=== PATIENT | female | born 1960 | race Caucasian/White ===

== ENCOUNTER 2018-10-04 16:56 | Emergency (ER) | payer MEDICAID, OTHER ==
[2018-10-04] MEDS ORDERED: Acetaminophen 500 MG TAB ONE (18:42)
[2018-10-04 18:56] LABS: #Eosinphils 0.1 thou/uL (0.0-0.7); #Lymphocytes 1.4 thou/uL (1.20-3.40); #Monocytes 0.4 thou/uL (0.11-0.59); #Neutrophils 6.2 thou/uL (1.40-6.50); %Basophils 0.2 % (0.0-1.0); %Eosinophils 1.5 % (0.0-10.0); %Lymphocytes 16.9 % (21.0-51.0); %Monocytes 4.4 % (0.0-10.0); %Neutrophils 77.1 % (42.0-75.0); Hemoglobin 12.7 g/dL (12.0-16.0); Mean Corpuscular HGB CONC 32.4 g/dL (32.0-36.0); Mean Corpuscular Hemoglobin 31.4 pg (27.0-31.0); Mean Platelet Volume 6.9 fL (7.4-10.4); Platelet Count 261 thou/uL (130-400); RBC Distribution Width 11.7 % (11.5-14.5); Red Blood Cell (RBC) Count 4.04 mill/uL (4.20-5.40)
[2018-10-04 19:15] LABS: ALT (SGPT) Less than 7 U/L (8-55); AST (SGOT) 16 U/L (5-34); Albumin 3.9 g/dL (3.5-5.0); Alkaline Phosphatase 98 U/L (40-150); Anion Gap 14 mmol/L (10-20); BUN (Urea Nitrogen) 21 mg/dL (9.8-20.1); Bilirubin, Total 0.2 mg/dL (0.2-1.2); Calc. Creatinine Clearance 0 mL/min (70-130); Calcium 8.9 mg/dL (7.8-10.44); Carbon Dioxide 24 mmol/L (22-29); Chloride 105 mmol/L (98-107); Estimated GFR-MDRD 59; Globulin 3.7 g/dL (2.4-3.5); Glucose 95 mg/dL (70-105); Potassium 4.1 mmol/L (3.5-5.1); Protein, Total 7.6 g/dL (6.0-8.3); Sodium 139 mmol/L (136-145)
--- NOTE | 2018-10-04 20:00 | ULT ---
BILATERAL LOWER EXTREMITY VENOUS DUPLEX EXAM: 10/04/18 INDICATIONS: Lower extremity pain and edema. The exam is severely limited due to patient's body habitus and pain during the exam. Portions of the femoral veins bilaterally were unable to be visualized. The venous structures are evaluated with color doppler with spectral analysis and compression. The visualized deep veins of both lower extremities show blood flow and compression. The posterior ti bial veins were suboptimally evaluated. Additional femoral veins were also suboptimally evaluated as noted above. IMPRESSION: No evidence of DVT identified in visualized veins of the lower extremities. The exam is suboptimal du e to body habitus. POS: [facility]
== END 2018-10-04 23:10 ==
LOC: ERS 16:56
DX: L03.115 Cellulitis of right lower limb (principal); L03.116 Cellulitis of left lower limb; F32.9 Major depressive disorder, single episode, unspecified; E03.9 Hypothyroidism, unspecified; E66.9 Obesity, unspecified; G20 Parkinson's disease; Z79.899 Other long term (current) drug therapy; Z79.1 Long term (current) use of non-steroidal anti-inflammatories (NSAID)
CPT/HCPCS: 36415; 80053; 85025; 93970

== ENCOUNTER 2019-05-28 06:56 | Inpatient (IN) | payer OTHER ==
[2019-05-28] MEDS ORDERED: Adacel (T-DAP) 0.5 ML SYRINGE ONE (07:41)
--- NOTE | 2019-05-28 07:52 | RAD ---
Right ankle 2 views HISTORY: Fall. Ankle injury. FINDINGS: No comparison. Internal fixation of the medial and lateral malleoli. Comminuted oblique fracture with one half shaft width lateral displacement of the major distal fragme nt involves the distal fibula above the level of the ankle mortise, with lucency around the proximal screws and mild bending of the side plate. Oblique fracture also involves the base of the medial malleolus with 1.0 cm lateral displacement of t he distal fragment and bending of the long wires that had previously traversed the medial malleolar fracture. There is approximately 1.3 cm lateral shift of the talus. Osseous structures are deminerali zed. IMPRESSION: Lateral displacement/dislocation of a bimalleolar right ankle fracture, involving the int ernal fixation hardware as detailed above.
[2019-05-28] MEDS ORDERED: CEFAZOLIN 1 GM VIAL ONE (08:37)
[2019-05-28 09:08] LABS: #Eosinphils 0.2 thou/uL (0.0-0.7); #Lymphocytes 1.5 thou/uL (1.20-3.40); #Monocytes 0.5 thou/uL (0.11-0.59); #Neutrophils 7.2 thou/uL (1.40-6.50); %Basophils 0.1 % (0.0-1.0); %Eosinophils 1.8 % (0.0-10.0); %Lymphocytes 15.9 % (21.0-51.0); %Neutrophils 77.1 % (42.0-75.0); Hemoglobin 14.4 g/dL (12.0-16.0); Mean Corpuscular HGB CONC 33.6 g/dL (32.0-36.0); Mean Corpuscular Hemoglobin 31.8 pg (27.0-31.0); Mean Corpuscular Volume 94.7 fL (78.0-98.0); Platelet Count 260 thou/uL (130-400); RBC Distribution Width 12.2 % (11.5-14.5); Red Blood Cell (RBC) Count 4.52 mill/uL (4.20-5.40); White Blood Cell (WBC) Count 9.3 thou/uL (4.8-10.8)
[2019-05-28 09:10] LABS: PTT 23.7 SEC (22.9-36.1); Prothrombin Time 12.9 SEC (12.0-14.7)
[2019-05-28 09:24] LABS: ALT (SGPT) Less than 7 U/L (8-55); AST (SGOT) 19 U/L (5-34); Alkaline Phosphatase 92 U/L (40-150); Anion Gap 16 mmol/L (10-20); BUN (Urea Nitrogen) 18 mg/dL (9.8-20.1); Bilirubin, Total 0.3 mg/dL (0.2-1.2); Calc. Creatinine Clearance 0 mL/min (70-130); Calcium 9.1 mg/dL (7.8-10.44); Carbon Dioxide 25 mmol/L (22-29); Chloride 105 mmol/L (98-107); Estimated GFR-MDRD 59; Globulin 3.6 g/dL (2.4-3.5); Glucose 103 mg/dL (70-105); Protein, Total 7.6 g/dL (6.0-8.3); Sodium 142 mmol/L (136-145)
--- NOTE | 2019-05-28 10:38 | RAD ---
CHEST 1 VIEW: HISTORY: Preoperative evaluation for basal stimulator pack. COMPARISON: 01/15/2015. FINDINGS: Implantable devices overlie the left axillary region and mid chest. Heart size is normal. The lungs are clear. IMPRESSION: No significant acute intrathoracic disease. Several implantable devices noted overlying the chest. POS: [facility]
[2019-05-28] MEDS ORDERED: Fentanyl 100 MCG/2 ML VIAL ONE ×3 (11:23→14:56)
[2019-05-28] MEDS ORDERED: Bupivacaine PF 0.5% 30 ML VIAL ONE (11:53)
[2019-05-28] MEDS ORDERED: Ondansetron PF 4 MG/2 ML Vial IV PRN (14:08)
[2019-05-28] MEDS ORDERED: traMADol HCl 50 MG TAB PO PRN (14:08)
[2019-05-28] MEDS ORDERED: Fentanyl 100 MCG/2 ML VIAL SLOW IVP PRN (14:08)
[2019-05-28] MEDS ORDERED: Acetaminophen/Codeine 30-300mg Tablet PO PRN (14:08)
[2019-05-28] MEDS ORDERED: Communication Order-Pharmacy FS SCH (14:15)
--- NOTE | 2019-05-28 14:23 | RAD ---
Right ankle 2 views intraoperative fluoroscopy HISTORY: Ankle fracture. FINDINGS: Intraoperative fluoroscopy was provided for internal fixation as performed by Dr. Vila . Spot fluoroscopic images show lateral compression plate and multiple screws transfixing the medial and lateral malleoli. Alignment is anatomic. Fluoroscopy time 13.7 seconds.
[2019-05-28] MEDS ORDERED: Albuterol Sulfate 1.25 MG/3 ML NEB ONE (14:46)
[2019-05-28] MEDS ORDERED: Ondansetron HCl/PF 4 MG/2 ML Vial IVP PRN (14:55)
[2019-05-28] MEDS ORDERED: Promethazine HCl 25 MG/ML VIAL IM PRN (14:55)
[2019-05-28] MEDS ORDERED: Promethazine HCl 25 MG/ML VIAL SLOW IVP PRN (14:55)
[2019-05-28] MEDS ORDERED: Ketorolac Tromethamine 30 MG/ML VIAL ONE (15:22)
[2019-05-28] MEDS ORDERED: PROPOFOL 200 MG/20 ML VIAL ONE (15:22)
[2019-05-28] MEDS ORDERED: Rocuronium Bromide 10 MG/ML (10ML VIAL) ONE (15:22)
[2019-05-28] MEDS ORDERED: Lidocaine 1% PF 5 ML VIAL ONE (15:22)
[2019-05-28] MEDS ORDERED: Ondansetron PF 4 MG/2 ML Vial ONE (15:22)
[2019-05-28] MEDS ORDERED: PHENYLEPHRINE-NS 100 MCG/ML 10 ML SYRINGE ONE (15:22)
--- NOTE | 2019-05-28 15:56 | OP ---
DATE OF PROCEDURE: 05/28/2019 OPERATIONS: 1. Open reduction and internal fixation of right bimalleolar ankle fracture. 2. Irrigation and debridement of right open fracture. 3. Hardware removal from right medial ankle. PREOPERATIVE DIAGNOSIS: Right open ankle fracture, bimalleolar, with old hardware in place. POSTOPERATIVE DIAGNOSIS: Right open ankle fracture, bimalleolar, with old hardware in place. COMPLICATIONS: None. ESTIMATED BLOOD LOSS: 100 mL. SCAFFOLD WORKER: Benji Mina. IMPLANTS: Two 4.0 cancellous screws from [employer] were utilized. INDICATIONS: Ms. Mckeon is a 58-year-old female who has fallen. She is a care home patient. She was having assistance; however, she lost balance and fell to the ground. She fractured her right ankle. She had a long transverse 10-cm laceration over the medial ankle down to the bony level. She was indicated for irrigation and debridement as well as open reduction and internal fixation of the ankle fracture to restore anatomic alignment and promote healing. Risks have been reviewed in detail. She has elected to proceed with the operation. DESCRIPTION OF PROCEDURE: Ms. Mckeon was identified in the preoperative holding area. Her correct extremity was marked. She was carried to the operating room. She was positioned supine. General anesthesia was induced. A multidisciplinary time-out was performed. The right lower extremity was prepped and draped in sterile fashion. At this point, we began the procedure with extension of the patient's traumatic wound. She had a 10-cm transverse wound along the medial ankle. We extended this 2 cm proximally and distally. We thoroughly irrigated with copious lavage using a pulse lavage. We trimmed the skin edges and removed damaged subcutaneous tissue, fascia, as well as bony fragments. We irrigated the ankle joint itself. After thorough irrigation, we used a reduction clamp to restore the anatomic alignment of the medial malleolus. Once this was accomplished, we passed two 4.0 screws, the 1st was partially threaded and the 2nd was fully threaded, across the fracture site. These were seated appropriately using x-ray guidance. We evaluated with intraoperative x-ray the ankle mortise as well as the lateral side. At this point, the lateral malleolus was well reduced after this manipulation technique. We decided not to make a 2nd excision given that the patient has very poor skin and soft tissues. We thoroughly irrigated once more. We then removed 2 wires from the medial side of the ankle, which were prominent. These were from a previous fracture surgery many years ago. The wires were removed using a pliers. Finally closed using an 0 Vicryl suture, 2-0 Vicryl suture, and nylon for the skin. A sterile dressing was applied as well as a well-padded splint. The patient was taken to the recovery room in good condition without complication at this point. Job ID: [id number]
[2019-05-28 16:11] VITALS: BMI 49.2
[2019-05-28] MEDS: CEFAZOLIN 2 GM in Premix Bag 1 BAG IVPB SCH ×2 (16:59→23:27)
[2019-05-28] MEDS ORDERED: Loratadine 10 MG TAB PO PRN (17:00)
[2019-05-28] MEDS ORDERED: Loperamide HCl 2 MG CAP PO PRN (17:00)
[2019-05-28] MEDS ORDERED: TETANUS AND DIPHTHERIA TOX/PF 0.5 ML DISP.SYRIN IM SCH (17:00)
[2019-05-28] MEDS: Pramipexole Di-HCl 0.25 MG TAB PO SCH ×2 (17:12→19:57)
[2019-05-28] MEDS: carBAMazepine 200 MG TAB PO SCH ×3 (17:12→23:28)
[2019-05-28] MEDS ORDERED: Simethicone Chewable 80 MG TAB PO PRN (19:00)
[2019-05-28] MEDS: Aspirin 81 mg Enteric Coated Tablet PO SCH (19:57)
[2019-05-28] MEDS: Furosemide 40 MG TAB PO SCH (19:57)
[2019-05-28] MEDS: Potassium Chloride 20 MEQ TAB PO SCH (19:57)
[2019-05-28] MEDS: Carbidopa/Levodopa 25-100 mg Tablet PO SCH ×2 (19:57→23:28)
[2019-05-28] MEDS: Entacapone 200 mg Tablet PO SCH ×2 (19:57→23:28)
[2019-05-29] MEDS: CEFAZOLIN 2 GM in Premix Bag 1 BAG IVPB SCH (05:55)
[2019-05-29] MEDS ORDERED: Levothyroxine Sodium 88 MCG TAB PO SCH (06:00)
[2019-05-29 06:05] LABS: #Eosinphils 0.1 thou/uL (0.0-0.7); #Lymphocytes 1.5 thou/uL (1.20-3.40); #Monocytes 0.6 thou/uL (0.11-0.59); #Neutrophils 5.5 thou/uL (1.40-6.50); %Basophils 0.2 % (0.0-1.0); %Eosinophils 1.8 % (0.0-10.0); %Lymphocytes 19.9 % (21.0-51.0); %Monocytes 7.4 % (0.0-10.0); %Neutrophils 70.7 % (42.0-75.0); Hemoglobin 10.7 g/dL (12.0-16.0); Mean Corpuscular HGB CONC 32.4 g/dL (32.0-36.0); Mean Corpuscular Volume 95.4 fL (78.0-98.0); Mean Platelet Volume 6.4 fL (7.4-10.4); Platelet Count 199 thou/uL (130-400); RBC Distribution Width 11.6 % (11.5-14.5); Red Blood Cell (RBC) Count 3.46 mill/uL (4.20-5.40); White Blood Cell (WBC) Count 7.8 thou/uL (4.8-10.8)
[2019-05-29 06:23] LABS: ALT (SGPT) Less than 7 U/L (8-55); AST (SGOT) 15 U/L (5-34); Albumin 3.1 g/dL (3.5-5.0); Alkaline Phosphatase 63 U/L (40-150); Anion Gap 9 mmol/L (10-20); BUN (Urea Nitrogen) 17 mg/dL (9.8-20.1); Bilirubin, Total 0.4 mg/dL (0.2-1.2); Calc. Creatinine Clearance 132 mL/min (70-130); Carbon Dioxide 28 mmol/L (22-29); Chloride 103 mmol/L (98-107); Estimated GFR-MDRD 59; Globulin 2.9 g/dL (2.4-3.5); Glucose 112 mg/dL (70-105); Potassium 3.8 mmol/L (3.5-5.1); Sodium 136 mmol/L (136-145)
[2019-05-29] MEDS: Aspirin 81 mg Enteric Coated Tablet PO SCH (08:41)
[2019-05-29] MEDS: Entacapone 200 mg Tablet PO SCH ×2 (08:41→11:55)
[2019-05-29] MEDS: carBAMazepine 200 MG TAB PO SCH ×2 (08:41→11:56)
[2019-05-29] MEDS: Carbidopa/Levodopa 25-100 mg Tablet PO SCH ×2 (08:41→11:55)
[2019-05-29] MEDS: Furosemide 40 MG TAB PO SCH (08:42)
[2019-05-29] MEDS: Potassium Chloride 20 MEQ TAB PO SCH (08:42)
[2019-05-29] MEDS: Pramipexole Di-HCl 0.25 MG TAB PO SCH (08:43)
[2019-05-29] MEDS ORDERED: Cyanocobalamin (Vitamin B-12) 1,000 MCG TAB PO SCH (09:00)
[2019-05-29] MEDS ORDERED: Folic Acid 1 MG TAB PO SCH ×2 (09:00→11:00)
[2019-05-29] MEDS ORDERED: Fluticasone Propionate Nasal Spray 16 gm Bottle NASAL SCH (09:00)
[2019-05-29] MEDS ORDERED: pyridOXINE 50 MG (B6) TAB PO SCH (09:00)
[2019-05-29 11:09] VITALS: BP 109/64; TEMP 98.5
--- NOTE | 2019-05-29 15:25 | DIS ---
DATE OF ADMISSION: 05/28/2019 DATE OF DISCHARGE: 05/29/2019 HOSPITAL COURSE: Ms. Mckeon is a 58-year-old female, who fell in her nursing facility. She fractured her right ankle. She had an open transverse wound over the medial ankle. She was taken to the operating room for irrigation and debridement of the open fracture as well as fixation. We performed medial ankle fixation as well as hardware removal from a previous ankle fracture. She was given intravenous Ancef and vancomycin. She was stable overnight with no complications. Pain was well controlled. She was tolerating an oral diet. The patient should be nonweightbearing on her right leg for 6 weeks. DISCHARGE INSTRUCTIONS: The patient will go back to her nursing facility. She can elevate the foot. She can leave her splint on to protect her fracture. I would like to see her in 1 week for wound evaluation and re-splinting of the fracture. Again, she should be nonweightbearing. The patient will be discharged with Tylenol with Codeine for pain control and aspirin for DVT prophylaxis. Job ID: [id number]
[2019-05-30] MEDS ORDERED: Folic Acid 1 MG TAB PO SCH (09:00)
== END 2019-05-29 15:20 | DRG 493 ==
LOC: ERS 06:56 → SURG A 14:08
PROVIDERS: ADMIT Orthopaedic Surgery; ATTEND Orthopaedic Surgery
PROC: 0QSJ04Z Reposition Right Fibula with Internal Fixation Device, Open Approach (ICD-10-PCS; principal; 2019-05-28)
PROC: 0SPG04Z Removal of Internal Fixation Device from Left Ankle Joint, Open Approach (ICD-10-PCS; 2019-05-28)
DX: S82.841B Displaced bimalleolar fracture of right lower leg, initial encounter for open fracture type I or II (principal); Z68.42 Body mass index [BMI] 45.0-49.9, adult; E03.9 Hypothyroidism, unspecified; G20 Parkinson's disease; E66.9 Obesity, unspecified; F32.9 Major depressive disorder, single episode, unspecified; F03.90 Unspecified dementia, unspecified severity, without behavioral disturbance, psychotic disturbance, mood disturbance, and anxiety; W18.30XA Fall on same level, unspecified, initial encounter
CPT/HCPCS: 36415; 51702; 71045; 76000; 80053; 85025; 85610; 85730; 86850; 86900; 86901; 90471; 90715; 93005; 96365; C1713; J0690; J1885; J2001; J2405; J2704; J3010; J3370; S0020

== ENCOUNTER 2019-09-06 08:22 | Day surgery (SDC) | payer OTHER ==
--- NOTE | 2019-09-06 09:35 | RAD ---
RIGHT ANKLE 2 VIEWS: Date: 09/06/19 HISTORY: Trauma. Comparison made to postoperative films of 05/28/19. FINDINGS/IMPRESSION: Patient has had prior internal fixation of distal tibia and fibula with plate and screws transfixing the distal fibula and screws transfixing medial malleolus and distal tibia. Today's exam shows evidence of an acute fracture involving the distal tibia with slight displacement of the distal tibia as seen on the lateral view. There is a fracture line seen through the lateral malleolus, which may represent the previous fractur e which was noted on 05/28/19. POS: [facility]
--- NOTE | 2019-09-06 09:53 | RAD ---
RIGHT TIBIA AND FIBULA 2 VIEWS: Date: 09/06/19 HISTORY: Injury. Comparison made to ankle films of 05/28/19. FINDINGS/IMPRESSION: Screws transfix the distal tibia and medial malleolus. Plate and screws transfix the distal fibula. There is evidence of a new fracture involving the distal tibia with slight displacement. This is best appreciated on the lateral view. Fracture line in the distal fibula is seen, although this appears to represent the previous fracture noted on 05/28/19. Fibula alignment remains intact. POS: [facility]
--- NOTE | 2019-09-06 11:26 | RAD ---
XR Chest 1 View Portable HISTORY: Preoperative evaluation COMPARISON: 05/28/2019 FINDINGS: The heart size is at upper limits of normal. The lungs are well expanded without focal area s of consolidation, pneumothorax or pleural effusions. Implantable devices overlying the chest are again seen. IMPRESSION: No radiographic evidence of acute cardiopulmonary process.
--- NOTE | 2019-09-06 11:46 | RAD ---
RIGHT ANKLE TWO VIEWS: COMPARISON: Radiograph from earlier same day of right leg. FINDINGS: Interval splinting of fractures of the distal right leg with lucencies again seen at the distal tibia and fibula with traversing hardware demonstrating similar configuration. Stable apex anterior angulation. IMPRESSION: Interval splinting of the distal fractures of the right leg. Transcribed Date/Time: 09/06/2019 11:56 AM
[2019-09-06 12:12] LABS: INR-International Normal Ratio 0.9; Prothrombin Time 12.4 SEC (12.0-14.7)
--- NOTE | 2019-09-06 12:12 | HP ---
DATE OF CONSULTATION: 09/06/2019 This is Anupam Henderson PA-C dictating a report for Benji Vila MD. HISTORY OF PRESENT ILLNESS: We were asked by ER and Trauma to see patient. The patient was at her skilled facility when she stood up, twisted, and re-broke her right ankle. The patient had surgery with ankle fixation about 12 weeks ago. She was in a boot for sometime. Boot was recently removed and she was informed with her caregiver present just to scoot her around on the wheelchair. Unfortunately, the patient again stood up today, twisted, and re-broke that ankle. From the ER report that they got from EMS, her ankle was at 90 degrees. She was given some ketamine, straightened out, and splinted. She has currently been re-splinted by the ER and appears comfortable. No loss of consciousness. No head injury. She is able to wiggle her toes. Her pain currently is controlled. PAST MEDICAL HISTORY: Positive for; 1. Hypothyroidism. 2. Parkinson's. 3. Obesity. 4. Some form of convulsions. PAST SURGICAL HISTORY: Multiple right ankle surgeries. PSYCHIATRIC HISTORY: 1. Dementia. 2. Depression. SOCIAL HISTORY: No alcohol, nicotine, or drug use. She currently resides in a long-term care facility. ALLERGIES: SAUSAGE. CURRENT MEDICATIONS: 1. Carbamazepine. 2. Cyanocobalamin tablets 1000 mg. 3. Fluconazole. 4. Folic acid. 5. Levothyroxine sodium. 6. Zyrtec p.r.n. 7. Lasix. 8. Potassium chloride. 9. Mirapex tablets. 10. . 11. Sinemet tablets. 12. Peroxydone. REVIEW OF SYSTEMS: The patient has minimal pain when we move that right ankle. She is a little bit confused, but for the most part, answering most questions okay. Denies any other positive review of systems. PHYSICAL EXAMINATION: GENERAL: Well-nourished, well-developed, obese female, on a gurney in room #8. Speech is soft, but she is answering questions well. She is oriented to person and place. Currently, she is in no acute distress. HEENT: Face is symmetric. Tongue is in midline. She does have some drooling due to her Parkinson's. NECK: Supple. Trachea in midline. EXTREMITIES: Upper extremities; equal size, shape, symmetry. Normal bulk and tone. Lower extremities; right lower extremity is currently in a splint, but she is able to wiggle well her toes and has good sensations. Left lower extremity, normal exam. VITAL SIGNS: Respirations 16. No acute distress. ASSESSMENT: 1. Multiple health issues. 2. Fall with ensuing right ankle fracture with hardware in. PLAN: I discussed with Dr. Vila. We went over x-rays. Plan will be to take her to the operating room with some light sedation to do a closed reduction with casting, I have explained this to the patient and she understands. We talked about risks, benefits, and she understands these and is amenable to go forth with the procedure. She has currently been n.p.o. since 5 o'clock this morning and we will get her added to this surgical schedule. Job ID: [id number]
[2019-09-06 12:18] LABS: PTT 18.6 SEC (22.9-36.1)
[2019-09-06 12:36] LABS: Anion Gap 14 mmol/L (10-20); Carbon Dioxide 24 mmol/L (22-29); Chloride 103 mmol/L (98-107); Potassium 4.4 mmol/L (3.5-5.1); Sodium 137 mmol/L (136-145)
[2019-09-06 12:37] LABS: Alkaline Phosphatase 95 U/L (40-110); BUN (Urea Nitrogen) 14 mg/dL (9.8-20.1); Bilirubin, Total 0.4 mg/dL (0.2-1.2); Calc. Creatinine Clearance 0 mL/min (70-130); Calcium 9.1 mg/dL (7.8-10.44); Estimated GFR-MDRD 69; Glucose 103 mg/dL (70-105)
[2019-09-06 12:38] LABS: ALT (SGPT) 13 U/L (8-55); AST (SGOT) 26 U/L (5-34)
[2019-09-06 14:03] LABS: #Basophils 0.1 thou/uL (0.0-0.2); #Eosinphils 0.1 thou/uL (0.0-0.7); #Lymphocytes 1.4 thou/uL (1.20-3.40); #Monocytes 1.1 thou/uL (0.11-0.59); #Neutrophils 9.2 thou/uL (1.40-6.50); %Basophils 0.4 % (0.0-1.0); %Lymphocytes 11.9 % (21.0-51.0); %Neutrophils 77.7 % (42.0-75.0); Hemoglobin 14.8 g/dL (12.0-16.0); Mean Corpuscular HGB CONC 34.1 g/dL (32.0-36.0); Mean Corpuscular Hemoglobin 31.7 pg (27.0-31.0); Mean Corpuscular Volume 92.8 fL (78.0-98.0); Mean Platelet Volume 7.8 fL (7.4-10.4); Platelet Count 168 thou/uL (130-400); RBC Distribution Width 12.4 % (11.5-14.5); Red Blood Cell (RBC) Count 4.68 mill/uL (4.20-5.40); White Blood Cell (WBC) Count 11.9 thou/uL (4.8-10.8)
--- NOTE | 2019-09-06 17:35 | RAD ---
Exam: XR Ankle Rt 2 View HISTORY: Right ankle closed reduction in the operating room. COMPARISON: 09/06/2019 FINDINGS: 2 intraoperative fluoroscopic images of the right ankle are provided. Images again demonstrate postsu rgical changes of the distal right tibia and fibula. Lucency within the distal tibia related to fracture is again seen and similar to prior study. Lucency in the distal fibula related to fracture is not well delineated on these fluoroscopic images. Correlation with intraoperative findings is recommended. Fluoroscopy: Time-5.3 seconds with total dose of 0.2 mGy
--- NOTE | 2019-09-06 18:07 | OP ---
DATE OF PROCEDURE: 09/06/2019 PROCEDURE PERFORMED: Closed reduction and casting of right distal tibia fracture. PREOPERATIVE DIAGNOSIS: Right distal tibia fracture. POSTOPERATIVE DIAGNOSIS: Right distal tibia fracture. COMPLICATIONS: None. ESTIMATED BLOOD LOSS: None. ELECTRONIC SEMICONDUCTOR PROCESSOR: Anupam Henderson PA-C IMPLANTS: None. INDICATIONS: Ms. Mckeon is a 58-year-old female, who fell and fractured her tibia distally. She had a history of ankle fracture, which has recently healed. She has poor skin and poor function in general. She was indicated for closed reduction and casting to hopefully stabilize her fracture and relieve pain and allow healing. Risks have been reviewed in detail. She has elected to proceed with the operation. DESCRIPTION OF PROCEDURE: Ms. Mckeon was identified in the preoperative holding area. Her correct extremity was marked. She was carried to the operating room. She was positioned supine. General anesthesia was induced. A multidisciplinary time-out was performed. The right lower extremity was prepped and draped in sterile fashion. We began the procedure with intraoperative x-ray evaluation. We reduced the fracture by placing traction and flexion force. Once the fracture was reduced, we proceeded to cast the leg. We placed a well-padded short-leg cast. The patient tolerated this well. There was no complications. She was taken to the recovery room in good condition. Job ID: [id number]
== END 2019-09-06 20:15 | disposition home or self-care (01) ==
LOC: ERS 08:22 → SDC/OP 15:00 → ERS 15:53 → SDC/OP 20:15
PROVIDERS: ATTEND Surgery
PROC: 0QSGXZZ Reposition Right Tibia, External Approach (ICD-10-PCS; principal; 2019-09-06)
DX: S82.301A Unspecified fracture of lower end of right tibia, initial encounter for closed fracture (principal); E03.9 Hypothyroidism, unspecified; F32.9 Major depressive disorder, single episode, unspecified; G20 Parkinson's disease; F03.90 Unspecified dementia, unspecified severity, without behavioral disturbance, psychotic disturbance, mood disturbance, and anxiety; E66.9 Obesity, unspecified; Z68.42 Body mass index [BMI] 45.0-49.9, adult; Z79.899 Other long term (current) drug therapy; Z91.018 Allergy to other foods; Z98.890 Other specified postprocedural states; X50.1XXA Overexertion from prolonged static or awkward postures, initial encounter; W18.30XA Fall on same level, unspecified, initial encounter
CPT/HCPCS: 29505; 36415; 71045; 76000; 80053; 85025; 85610; 85730; G0390